=== PATIENT | female | born 1980 | race Caucasian/White ===

== ENCOUNTER 2022-09-25 12:38 | Emergency (ER) | payer SELFPAY ==
[~2022-09-25] VITALS: Ht 162.6 cm; Wt 51.7 kg
[2022-09-25] MEDS ORDERED: Percocet 5-3251 EACH PO (15:31)
[2022-09-25 15:46] VITALS: BP 118/68
== END 2022-09-25 15:49 | disposition home or self-care (01) ==
LOC: ER 12:38
DX: S62.326G Displaced fracture of shaft of fifth metacarpal bone, right hand, subsequent encounter for fracture with delayed healing (principal); F17.200 Nicotine dependence, unspecified, uncomplicated; Z88.0 Allergy status to penicillin; Z91.030 Bee allergy status; W22.8XXD Striking against or struck by other objects, subsequent encounter
CPT/HCPCS: 73130; A9270